=== PATIENT | female | born 1950 | race Caucasian/White ===

== ENCOUNTER 2018-01-19 18:46 | Emergency (ER) | payer OTHER ==
[~2018-01-19] VITALS: Ht 152.4 cm; Wt 83.5 kg
[2018-01-19 18:50] VITALS: Ht 152.4 cm; Wt 83.5 kg
[2018-01-19 19:50] VITALS: BP 140/70
== END 2018-01-19 19:50 | disposition home or self-care (01) ==
LOC: ED 18:46
DX: S93.504A Unspecified sprain of right lesser toe(s), initial encounter (principal); X58.XXXA Exposure to other specified factors, initial encounter; Y93.89 Activity, other specified; Y99.8 Other external cause status; Y92.89 Other specified places as the place of occurrence of the external cause